=== PATIENT | female | born 1930 | race Caucasian/White ===

== ENCOUNTER 2019-02-06 13:17 | Inpatient (IN) | payer MEDICARE, OTHER ==
--- NOTE | 2019-02-06 13:58 | RADIOLOGY REPORT (SQ) ---
EXAM DESCRIPTION: KNEE LEFT 2 VIEWS COMPLETED DATE/TIME: 02/06/2019 1:40 pm REASON FOR STUDY: mp ? dislocation +tenderness COMPARISON: None. NUMBER OF VIEWS: Four views. TECHNIQUE: Lateral radiographic images acquired of the left knee. LIMITATIONS: None. FINDINGS: MINERALIZATION: Normal. BONES: Markedly distracted comminuted proximal-mid body patellar fracture. JOINT: No effusion. SOFT TISSUES: Soft tissue swelling. No radio-opaque foreign body. OTHER: No other significant finding. IMPRESSION: 1. Markedly distracted comminuted proximal -mid body patellar fracture. TECHNICAL DOCUMENTATION: JOB ID: [id number] [employer]- All Rights Reserved Reading location - IP/workstation name: [email or web address]
[2019-02-06] MEDS ORDERED: ONDANSETRON HCL INJ/PF 4 MG/2 ML SDV IV PRN (14:05)
[2019-02-06] MEDS ORDERED: OXYCODONE-ACETAMINOPHEN 5-325 MG TABLET PO PRN (14:05)
--- NOTE | 2019-02-06 14:12 | ER Document Report ---
Entered by HALEY FERNANDES SCRIBE 02/06/19 1400 Acting as scribe for:VALE VALDES MD ED Extremity Problem, Lower - General Chief Complaint: Knee Injury Stated Complaint: FALL/KNEE PAIN Time Seen by Provider: 02/06/19 13:42 Mode of Arrival: Ambulatory Information source: Patient Notes: Patient is an 88 year old female with HTN, osteoporosis presents to the emerge ncy department via EMS complaining of left knee pain secondary a mechanical trip and fall onset this morning. Patient states she was on her way to the [facility] when she tripped and fell on concrete, landing on her left knee. She denies any head trauma or being on blood thinners. Patient received 5mcg of IV Fentanyl and 4mg IV Zofran en route to the emergency department. Patient's PCP is Dr. Diaz. TRAVEL OUTSIDE OF THE [place] IN LAST 30 DAYS: No - Related Data Allergies/Adverse Reactions: codeine Allergy (Verified 02/06/19 13:43) Penicillins Allergy (Verified 02/06/19 13:43) streptomycin Allergy (Verified 02/06/19 13:45) ciprofloxacin [From Cipro] Adverse Reaction (Verified 02/06/19 14:24) Past Medical History - General Information source: Patient - Social History Smoking Status: Never Smoker Chew tobacco use (# tins/day): No Frequency of alcohol use: None Drug Abuse: None Family History: Reviewed & Not Pertinent Patient has suicidal ideation: No Patient has homicidal ideation: No - Past Medical History Cardiac Medical History: Reports: Hx Hypertension Review of Systems - Review of Systems Constitutional: No symptoms reported EENT: No symptoms reported Cardiovascular: No symptoms reported Respiratory: No symptoms reported Gastrointestinal: No symptoms reported Genitourinary: No symptoms reported Female Genitourinary: No symptoms reported Musculoskeletal: See HPI Skin: No symptoms reported Hematologic/Lymphatic: No symptoms reported Neurological/Psychological: No symptoms reported -: Yes All other systems reviewed and negative Physical Exam - Vital signs Vitals: Resp Pulse Ox 18 95 02/06/19 14:00 02/06/19 14:00 - Notes Notes: GENERAL: Alert, interacts well. No acute distress. HEAD: Normocephalic, atraumatic. EYES: Pupils equal, round, and reactive to light. Extraocular movements intact. ENT: Oral mucosa moist, tongue midline. NECK: Full range of motion. Supple. Trachea midline. LUNGS: Clear to auscultation bilaterally, no wheezes, rales, or rhonchi. No respiratory distress. HEART: Regular rate and rhythm. No murmurs, gallops, or rubs. ABDOMEN: Soft, non-tender. Non-distended. Bowel sounds present in all 4 quadrants. No guarding, rigidity, or rebound. EXTREMITIES: Moves all 4 extremities spontaneously. LLE is in flexion . Bony mass above and below the knee consistent with upper and lower half of patella, swelling. NEUROLOGICAL: Alert and oriented x3. Normal speech. PSYCH: Normal affect, normal mood. SKIN: Warm, dry, normal turgor. No rashes or lesions noted. Course - Re-evaluation Re-evalutation: 02/06/19 15:02 The knee immobilizer was placed on the left knee by myself with the assistance of the PCT. I slowly and gently extended the patient's knee until it was in a neutral position and then we applied the knee immobilizer. It does allow her to keep her knee in full extension and fits well. - Vital Signs Vital signs: Temp Pulse Resp BP Pulse Ox 17 152/69 H 95 02/06/19 14:02 02/06/19 14:02 02/06/19 14:02 - Diagnostic Test Radiology reviewed: Image reviewed, Reports reviewed - Transverse fracture of the patella with separation of the upper and lower halves - Consults Dr. Laurent Time consulted: 13:56 Consulted provider: will come to ER Discharge - Discharge Clinical Impression: Patella fracture Qualifiers: Encounter type: initial encounter Fracture type: closed Fracture morphology: transverse Fracture alignment: displaced Laterality: left Qualified Code(s): S82.032A - Displaced transverse fracture of left patella, initial encounter for closed fracture Condition: Stable Disposition: ADMITTED INPATIENT Admitting Provider: Dr. Laurent Unit Admitted: Surgical Floor Scribe Attestation: 02/06/19 14:10 I personally performed the services described in the documentation, reviewed and edited the documentation which was dictated to the scribe in my presence, and it accurately records my words and actions. I personally performed the services described in the documentation, reviewed and edited the documentation which was dictated to the scribe in my presence, and it accurately records my words and actions.
--- NOTE | 2019-02-06 14:26 | PDOC H&P ---
History of Present Illness Patient complains of: Left Knee Pain History of Present Illness: JOSE RAMON SAUNDERS is a 88 year old female who was out voting when she sustained a fall onto her left knee. Patient was unable to weight-bear. She was brought to emergency room where x-rays demonstrated fracture. Pain with attempted motion including straightening. She states straight leg sniffily worsens her pain. Denies numbness or tingling. Denies headache dizziness or loss of consciousness. Past Medical History Cardiac Medical History: Reports: Hypertension Social History Smoking Status: Never Smoker Family History Family History: Reviewed & Not Pertinent Parental Family History Reviewed: Yes Children Family History Reviewed: No Sibling(s) Family History Reviewed.: No Medication/Allergy Home Medications: Cephalexin [Cephalexin 500 MG Tablet] 500 mg PO TID 02/06/19 Losartan/Hydrochlorothiazide [Losartan-Hctz 100-25 mg Tab] 1 each PO DAILY 02/06/19 Metoprolol Succinate 100 mg PO BID 02/06/19 Raloxifene HCl [Evista 60 mg Tablet] 60 mg PO DAILY 02/06/19 Allergies/Adverse Reactions: codeine Allergy (Verified 02/06/19 13:43) Penicillins Allergy (Verified 02/06/19 13:43) streptomycin Allergy (Verified 02/06/19 13:45) ciprofloxacin [From Cipro] Adverse Reaction (Verified 02/06/19 14:24) Review of Systems Constitutional: ABSENT: chills, fever(s), headache(s), weight gain, weight loss Eyes: ABSENT: visual disturbances Ears: ABSENT: hearing changes Cardiovascular: ABSENT: chest pain, dyspnea on exertion, edema, orthropnea, palpitations Respiratory: ABSENT: cough, hemoptysis Gastrointestinal: ABSENT: abdominal pain, constipation, diarrhea, hematemesis, hematochezia, nausea, vomiting Genitourinary: ABSENT: dysuria, hematuria Musculoskeletal: PRESENT: as per HPI Integumentary: ABSENT: rash, wounds Neurological: ABSENT: abnormal gait, abnormal speech, confusion, dizziness, focal weakness, syncope Psychiatric: ABSENT: anxiety, depression, homidical ideation, suicidal ideation Endocrine: ABSENT: cold intolerance, heat intolerance, menstrual abnormalities, polydipsia, polyuria Hematologic/Lymphatic: ABSENT: easy bleeding, easy bruising, lymphadenopathy Physical Exam General appearance: PRESENT: no acute distress, well-developed, well-nourished Head exam: PRESENT: atraumatic, normocephalic Eye exam: PRESENT: conjunctiva pink, EOMI, PERRLA. ABSENT: scleral icterus Ear exam: PRESENT: normal external ear exam Mouth exam: PRESENT: moist, tongue midline Neck exam: PRESENT: full ROM. ABSENT: carotid bruit, JVD, lymphadenopathy, thyromegaly Respiratory exam: PRESENT: unlabored Cardiovascular exam: PRESENT: RRR. ABSENT: diastolic murmur, rubs, systolic murmur Pulses: PRESENT: normal dorsalis pedis pul, +2 pedal pulses bilateral Vascular exam: PRESENT: normal capillary refill GI/Abdominal exam: PRESENT: normal bowel sounds, soft. ABSENT: distended, guarding, mass, organolmegaly, rebound, tenderness Rectal exam: PRESENT: deferred Musculoskeletal exam: PRESENT: other - Left Knee: Palpable deformity of the anterior patella. Inability to straight leg raise. Mild effusion. No evidence of open wound. Intact PF/DF. No sensory deficits. DP Pulse 2+ Neurological exam: PRESENT: alert, awake, oriented to person, oriented to place, oriented to time, oriented to situation, CN II-XII grossly intact. ABSENT: m otor sensory deficit Psychiatric exam: PRESENT: appropriate affect, normal mood. ABSENT: homicidal ideation, suicidal ideation Skin exam: PRESENT: dry, intact, warm. ABSENT: cyanosis, rash Results Impressions: Knee X-Ray 02/06/19 00:00 IMPRESSION: 1. Markedly distracted comminuted proximal -mid body patellar fracture. Status: Image reviewed by ne - I have reviewed patient's radiographs which demonstrate transverse displaced patella fracture. No evidence of associated fracture. Assessment & Plan - Diagnosis (1) Fracture of patella Qualifiers: Encounter type: initial encounter Fracture type: closed Fracture morphology: transverse Fracture alignment: displaced Laterality: left Qualified Code(s): S82.032A - Displaced transverse fracture of left patella, initial encounter for closed fracture Is this a current diagnosis for this admission?: Yes Plan: Radiographs demonstrate displaced patella fracture given the amount of displacement I have recommended operative intervention however alternatives including nonoperative treatment have also been discussed. Risks and benefits of the surgical procedure have been explained to the patient risks including postoperative pain, stiffness, posttraumatic arthritis, nonunion, hardware failure or irritation necessitating removal. After discussing risks and benefits joint decision was made to proceed with operative treatment. Prior to operative intervention hospitalist will see the patient in consultation to determine if they are medically optimized for surgical treatment.
[2019-02-06 15:17] LABS: ABSOLUTE BASOPHILS # (AUTO) 0.1 10^3/uL (0.0-0.2); ABSOLUTE EOSINOPHILS # (AUTO) 0.1 10^3/uL (0.0-0.6); ABSOLUTE LYMPHOCYTES (AUTO) 1.2 10^3/uL (0.5-4.7); ABSOLUTE MONOCYTES (AUTO) 0.9 10^3/uL (0.1-1.4); ABSOLUTE NEUT (AUTO) 11.6 10^3/uL (1.7-8.2); BASOPHILS % (AUTO) 0.6 % (0-2); EOSINOPHILS % (AUTO) 0.9 % (0-6); HEMATOCRIT 37.9 % (36.0-47.0); HEMOGLOBIN 12.8 g/dL (12.0-15.5); LYMPHOCYTES % (AUTO) 8.4 % (13-45); MEAN CORPUSCULAR HEMOGLOBIN 30.8 pg (27.0-33.4); MEAN CORPUSCULAR HGB CONC 33.7 g/dL (32.0-36.0); MEAN CORPUSCULAR VOLUME 91 fl (80-97); MONOCYTES % (AUTO) 6.3 % (3-13); PLATELET COUNT 190 10^3/uL (150-450); RED BLOOD COUNT 4.15 10^6/uL (3.72-5.28); RED CELL DISTRIBUTION WIDTH 13.6 % (11.5-14.0); SEGMENTED NEUTROPHILS % (AUTO) 83.8 % (42-78); TOTAL CELLS COUNTED % (AUTO) 100 %; WHITE BLOOD COUNT 13.8 10^3/uL (4.0-10.5)
[2019-02-06 15:40] LABS: ALANINE AMINOTRANSFERASE 39 U/L (9-52); ALBUMIN 3.9 g/dL (3.5-5.0); ALKALINE PHOSPHATASE 45 U/L (38-126); ANION GAP 12 (5-19); ASPARTATE AMINO TRANSFERASE 27 U/L (14-36); BILIRUBIN,DIRECT 0.2 mg/dL (0.0-0.4); BILIRUBIN,TOTAL 0.4 mg/dL (0.2-1.3); BLOOD UREA NITROGEN 34 mg/dL (7-20); CALCIUM 10.1 mg/dL (8.4-10.2); CARBON DIOXIDE 30 mmol/L (22-30); CHLORIDE 97 mmol/L (98-107); CREATINE KINASE 44 U/L (30-135); GLUCOSE 113 mg/dL (75-110); POTASSIUM 3.3 mmol/L (3.6-5.0); SODIUM 138.8 mmol/L (137-145); TOTAL PROTEIN 6.8 g/dL (6.3-8.2)
[2019-02-06 15:47] LABS: CREATINE KINASE MB 1.01 ng/mL (<4.55)
[2019-02-06] MEDS: RINGERS SOLUTION,LACTATED 1,000 ML IV PRN (15:48)
[2019-02-06 15:55] LABS: TROPONIN I < 0.012 ng/mL
--- NOTE | 2019-02-06 15:56 | RADIOLOGY REPORT (SQ) ---
EXAM DESCRIPTION: CHEST SINGLE VIEW COMPLETED DATE/TIME: 02/06/2019 3:22 pm REASON FOR STUDY: pre-op COMPARISON: None. EXAM PARAMETERS: NUMBER OF VIEWS: One view. TECHNIQUE: Single frontal radiographic view of the chest acquired. RADIATION DOSE: NA LIMITATIONS: None. FINDINGS: LUNGS AND PLEURA: No opacities, masses or pneumothorax. No pleural effusion. MEDIASTINUM AND HILAR STRUCTURES: No masses. Contour normal. HEART AND VASCULAR STRUCTURES: Cardiomegaly. Normal vasculature. BONES: No acute findings. HARDWARE: None in the chest. OTHER: No other significant finding. IMPRESSION: 1. No acute pulmonary findings. 2. Cardiomegaly. No evidence for failure. TECHNICAL DOCUMENTATION: JOB ID: [id number] [employer]- All Rights Reserved Reading location - IP/workstation name: [email or web address]
[2019-02-06 16:02] LABS: APPEARANCE,URINE CLOUDY; BILIRUBIN,URINE NEGATIVE (NEGATIVE); GLUCOSE, URINE NEGATIVE (NEGATIVE); KETONES,URINE NEGATIVE (NEGATIVE); LEUKOCYTE ESTERASE,URINE NEGATIVE (NEGATIVE); NITRITE,URINE NEGATIVE (NEGATIVE); PROTEIN,URINE 100 mg/dL (NEGATIVE); URINE SPECIFIC GRAVITY 1.015; UROBILINOGEN,URINE NEGATIVE mg/dL (<2.0)
[2019-02-06 16:04] LABS: COLOR,URINE RED
[2019-02-06] MEDS ORDERED: METOPROLOL TARTRATE PF/INJ 5 MG/5 ML SDV IV PRN (16:23)
--- NOTE | 2019-02-06 16:44 | PDOC CONSULTATION ---
Consultation Consult Date: 02/06/19 Attending physician:: HUGO JEAN Consult reason:: HTN management History of Present Illness Admission Date/PCP: 02/06/19 14:34 EMILY MATIAS MD Patient complains of: FALL - L KNEE PAIN History of Present Illness: BILL SAUNDERS is a 88 year old female with a PMH HTN presented to the emergency department following a trip and fall. Patient reports she landed on her left knee. X-rays reveal markedly distracted comminuted proximal -mid body patellar fracture. Patient is admitted to Ortho surgery. Hospitalist is consulted for HTN management and cardiac clearance for surgery. The patient reports a medical history of HTN. No history of cardiac catheterization, stress test or echocardiogram. Her HTN is managed by her PCP, Dr. Matias. On exam, the patient has a systolic murmur. She denies ever being told she has a murmur. Discussed the patient's history and physical exam with Dr. Francis, will plan for preop echocardiogram and EKG. Past Medical History Cardiac Medical History: Reports: Hypertension Pulmonary Medical History: Reports: None EENT Medical History: Reports: None Neurological Medical History: Reports: None Endocrine Medical History: Reports: None Renal/ Medical History: Reports: None Malignancy Medical History: Reports: None GI Medical History: Reports: None Musculoskeltal Medical History: Reports: None Skin Medical History: Reports: None Psychiatric Medical History: Reports: None Traumatic Medical History: Reports: None Hematology: Reports: None Infectious Medical History: Reports: None Past Surgical History Past Surgical History: Reports: Appendectomy, 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 Social History Information Source: Patient Lives with: Alone Smoking Status: Never Smoker Frequency of Alcohol Use: None Hx Recreational Drug Use: No Drugs: None Hx Prescription Drug Abuse: No - Advance Directive Resuscitation Status: Do Not Resuscitate Family History Family History: CAD Parental Family History Reviewed: Yes Children Family History Reviewed: Yes Sibling(s) Family History Reviewed.: Unknown Medication/Allergy Home Medications: Cephalexin [Cephalexin 500 MG Tablet] 500 mg PO TID 02/06/19 Losartan/Hydrochlorothiazide [Losartan-Hctz 100-25 mg Tab] 1 each PO DAILY 02/06/19 Metoprolol Succinate 100 mg PO BID 02/06/19 Raloxifene HCl [Evista 60 mg Tablet] 60 mg PO DAILY 02/06/19 Allergies/Adverse Reactions: codeine Allergy (Verified 02/06/19 13:43) Penicillins Allergy (Verified 02/06/19 13:43) streptomycin Allergy (Verified 02/06/19 13:45) ciprofloxacin [From Cipro] Adverse Reaction (Verified 02/06/19 14:24) Review of Systems Constitutional: ABSENT: headache(s) Eyes: ABSENT: visual disturbances Ears: ABSENT: hearing changes Nose, Mouth, and Throat: ABSENT: headache(s) Cardiovascular: ABSENT: chest pain Gastrointestinal: ABSENT: abdominal pain Genitourinary: PRESENT: dysuria - currently taking cephalexin for UTI Musculoskeletal: PRESENT: deformity - L KNEE, joint swelling Neurological: ABSENT: vertigo Psychiatric: ABSENT: anxiety, depression Endocrine: ABSENT: cold intolerance, heat intolerance Hematologic/Lymphatic: ABSENT: easy bleeding, easy bruising Physical Exam Vital Signs: Temp Pulse Resp BP Pulse Ox 97.5 F 57 L 14 150/77 H 98 02/06/19 13:23 02/06/19 13:23 02/06/19 16:01 02/06/19 16:01 02/06/19 16:01 General appearance: PRESENT: thin Head exam: PRESENT: atraumatic Eye exam: PRESENT: conjunctiva pink, PERRLA Mouth exam: PRESENT: moist, tongue midline Neck exam: PRESENT: full ROM. ABSENT: JVD Respiratory exam: PRESENT: clear to auscultation gabriella, symmetrical, unlabored Cardiovascular exam: PRESENT: RRR, systolic murmur Pulses: PRESENT: normal radial pulses, normal dorsalis pedis pul Vascular exam: PRESENT: normal capillary refill GI/Abdominal exam: PRESENT: soft. ABSENT: distended, tenderness Rectal exam: PRESENT: deferred Extremities exam: ABSENT: full ROM, pedal edema Musculoskeletal exam: PRESENT: deformity - L KNEE. ABSENT: ambulatory, full ROM Neurological exam: PRESENT: alert, awake, oriented to person, oriented to place, oriented to time, oriented to situation Psychiatric exam: PRESENT: appropriate affect Skin exam: PRESENT: dry, intact, normal color Results Laboratory Results: 02/06/19 15:03 02/06/19 15:03 02/06/19 02/06/19 02/06/19 15:03 15:03 15:26 WBC 13.8 H RBC 4.15 Hgb 12.8 Hct 37.9 MCV 91 MCH 30.8 MCHC 33.7 RDW 13.6 Plt Count 190 Seg Neutrophils % 83.8 H Lymphocytes % 8.4 L Monocytes % 6.3 Eosinophils % 0.9 Basophils % 0.6 Absolute Neutrophils 11.6 H Absolute Lymphocytes 1.2 Absolute Monocytes 0.9 Absolute Eosinophils 0.1 Absolute Basophils 0.1 Sodium 138.8 Potassium 3.3 L Chloride 97 L Carbon Dioxide 30 Anion Gap 12 BUN 34 H Creatinine 1.09 Est GFR ( Amer) 57 L Est GFR (Non-Af Amer) 47 L Glucose 113 H Calcium 10.1 Total Bilirubin 0.4 AST 27 ALT 39 Alkaline Phosphatase 45 Total Protein 6.8 Albumin 3.9 Urine Color RED Urine Appearance CLOUDY Urine pH 6.0 Ur Specific [place] 1.015 Urine Protein 100 H Urine Glucose (UA) NEGATIVE Urine Ketones NEGATIVE Urine Blood LARGE H Urine Nitrite NEGATIVE Ur Leukocyte Esterase NEGATIVE Urine WBC (Auto) 51 Urine RBC (Auto) >182 02/06/19 02/06/19 15:03 15:03 Creatine Kinase 44 CK-MB (CK-2) 1.01 Troponin I < 0.012 Impressions: Knee X-Ray 02/06/19 00:00 IMPRESSION: 1. Markedly distracted comminuted proximal -mid body patellar fracture. Chest X-Ray 02/06/19 13:57 IMPRESSION: 1. No acute pulmonary findings. 2. Cardiomegaly. No evidence for failure. Status: Imported from PACS Assessment and Plan - Diagnosis (1) Fracture of patella Qualifiers: Encounter type: initial encounter Fracture type: closed Fracture morphology: transverse Fracture alignment: displaced Laterality: left Qualified Code(s): S82.032A - Displaced transverse fracture of left patella, initial encounter for closed fracture Is this a current diagnosis for this admission?: Yes Plan: Management per Ortho (2) Hypertension Qualifiers: Hypertension type: essential hypertension Qualified Code(s): I10 - Essential (primary) hypertension Is this a current diagnosis for this admission?: Yes Plan: PMH HTN Blood pressure relatively well controlled (SBP 150) PRN IV hydralazine and IV Lopressor for SBP > 170 We will resume home medications when reconciliation is complete (3) Systolic murmur Is this a current diagnosis for this admission?: Yes Plan: Systolic murmur heard during assessment Patient denies ever being told she has a murmur Patient denies ever undergoing a cardiac work-up Discussed assessment findings with Dr. Francis Plan for preoperative echocardiogram and EKG - Time Time Spent with patient: 15-24 minutes Medications reviewed and adjusted accordingly: Yes Anticipated discharge: Home, Acute Rehab Within: Other - When medically stable - Inpatient Certification Based on my medical assessment, after consideration of the patient's comorbidities, presenting symptoms, or acuity I expect that the services needed warrant INPATIENT care.: Yes I certify that my determination is in accordance with my understanding of Medicare's requirements for reasonable and necessary INPATIENT services [42 CFR 412.3e].: Yes Medical Necessity: Need for Surgery
[2019-02-06] MEDS: HYDRALAZINE HCL INJ/PF 20 MG/1 ML SDV IV PRN (18:29)
[2019-02-06] MEDS: MORPHINE SULFATE 10 MG/ML INJ IV PRN (21:42)
[2019-02-07] MEDS: RINGERS SOLUTION,LACTATED 1,000 ML IV PRN ×2 (06:06→21:51)
[2019-02-07 07:48] LABS: ABSOLUTE LYMPHOCYTES (AUTO) 1.4 10^3/uL (0.5-4.7); ABSOLUTE MONOCYTES (AUTO) 1.2 10^3/uL (0.1-1.4); ABSOLUTE NEUT (AUTO) 8.6 10^3/uL (1.7-8.2); BASOPHILS % (AUTO) 0.3 % (0-2); EOSINOPHILS % (AUTO) 0.4 % (0-6); HEMATOCRIT 33.1 % (36.0-47.0); HEMOGLOBIN 11.3 g/dL (12.0-15.5); MEAN CORPUSCULAR VOLUME 91 fl (80-97); MONOCYTES % (AUTO) 10.9 % (3-13); PLATELET COUNT 153 10^3/uL (150-450); RED BLOOD COUNT 3.64 10^6/uL (3.72-5.28); RED CELL DISTRIBUTION WIDTH 13.9 % (11.5-14.0); SEGMENTED NEUTROPHILS % (AUTO) 76.4 % (42-78); TOTAL CELLS COUNTED % (AUTO) 100 %; WHITE BLOOD COUNT 11.3 10^3/uL (4.0-10.5)
[2019-02-07 07:50] LABS: ANION GAP 10 (5-19); BLOOD UREA NITROGEN 31 mg/dL (7-20); CALCIUM 9.4 mg/dL (8.4-10.2); CARBON DIOXIDE 28 mmol/L (22-30); CHLORIDE 99 mmol/L (98-107); GLUCOSE 104 mg/dL (75-110); POTASSIUM 3.4 mmol/L (3.6-5.0); SODIUM 136.5 mmol/L (137-145)
[2019-02-07] MEDS ORDERED: CLINDAMYCIN 600 MG/D5W RTU 600 MG/50 ML RTUPB IV PRN (08:15)
[2019-02-07] MEDS ORDERED: CLINDAMYCIN 600 MG/D5W RTU 600 MG/50 ML RTUPB IV ONE (08:42)
[2019-02-07] MEDS ORDERED: FENTANYL CITRATE INJ/PF 100 MCG/2 ML AMPUL ONE (08:51)
[2019-02-07] MEDS ORDERED: PROPOFOL INJ 200 MG/20 ML VIAL IV ONE (08:52)
[2019-02-07] MEDS ORDERED: ONDANSETRON HCL INJ/PF 4 MG/2 ML SDV ONE (08:52)
[2019-02-07] MEDS ORDERED: MIDAZOLAM 2 MG/2 ML INJ ONE (08:52)
[2019-02-07] MEDS ORDERED: MORPHINE SULFATE 10 MG/ML INJ IV PRN ×2 (09:37→10:45)
[2019-02-07] MEDS ORDERED: DIPHENHYDRAMINE HCL 50 MG/ML VIAL IV PRN (09:37)
[2019-02-07] MEDS ORDERED: FENTANYL CITRATE INJ/PF 100 MCG/2 ML AMPUL IV PRN ×3 (09:37)
[2019-02-07] MEDS ORDERED: OXYCODONE-ACETAMINOPHEN 5-325 MG TABLET PO PRN ×2 (09:37)
[2019-02-07] MEDS ORDERED: PROMETHAZINE HCL INJ 25 MG/1 ML VIAL IV PRN ×2 (09:37)
[2019-02-07] MEDS ORDERED: ONDANSETRON HCL INJ/PF 4 MG/2 ML SDV IV PRN (09:37)
[2019-02-07] MEDS ORDERED: MEPERIDINE HCL/PF INJ 25 MG/1 ML DISP.SYRIN IV PRN (09:37)
[2019-02-07] MEDS ORDERED: EPHEDRINE SULFATE INJ 50 MG/1 ML AMPULE ONE (09:41)
--- NOTE | 2019-02-07 09:51 | Operative Report ---
Operative Report DATE OF SURGERY: 02/07/19 PREOPERATIVE DIAGNOSIS: Left patella fracture OPERATION: Open reduction internal fixation left patella fracture SURGEON: SHRUTHI KOENIG ANESTHESIA: Spinal ESTIMATED BLOOD LOSS: Minimal PROCEDURE: With the patient supine on the operative table the left lower extremities prepped and draped in sterile fashion. Limb is elevated for exsanguination tourniquet inflated 280 torr. A longitudinal incision was made over the midline of the left patella and sharp dissection was carried incision down to the patellar periosteum. The hematoma is evacuated. The underlying his patella is reduced under direct visualization with a large tenaculum. Subsequently to 0.062 K wires are advanced from distal to proximal across the fracture site. Fluoroscopy was used to assess hardware position as well as fracture reduction both of which are acceptable. Next a #5 FiberWire is used to fashion a [id number] around the existing K wires and across the fracture site anteriorly. This is secured with square knot. The FiberWire was then used to repair both the medial and lateral retinacular tears. At this point the knee is put through range of motion and the fixation was felt to be stable. Fluoroscopy demonstrates an anatomic reduction and adequate hardware placement. The tourniquet is deflated. The wound was irrigated bulb lavage. Hemostasis obtained with electrocautery. The wound was then closed in layers interrupted Vicryl followed by vibha. A sterile compressive dressing and knee immobilizer applied and the patient's return to the PACU in satisfactory condition.
[2019-02-07] MEDS ORDERED: RINGERS SOLUTION,LACTATED 1,000 ML IV PRN (10:43)
--- NOTE | 2019-02-07 11:36 | RADIOLOGY REPORT (SQ) ---
EXAM DESCRIPTION: NO CHG FLUORO; KNEE LEFT 2 VIEWS COMPLETED DATE/TIME: 02/07/2019 11:13 am REASON FOR STUDY: ORIF LEFT KNEE ASST WITH FLUORO IN OR; ORIF LEFT KNEE/PATELLA ASST WITH FLUORO IN OR COMPARISON: None. FLUOROSCOPY TIME: 0.1 minutes 2 images saved to PACS. TECHNIQUE: Intra-operative images acquired during surgical procedure to evaluate progress. NUMBER OF IMAGES: 0.2 LIMITATIONS: None. FINDINGS: Images obtained of the left knee reveal open reduction internal fixation of patellar fract ure. Please correlate with operative note. IMPRESSION: IMAGE(S) OBTAINED DURING PROCEDURE. COMMENT: Quality ID [id number]: Final reports for procedures using fluoroscopy that document radiation exp osure indices, or exposure time and number of fluorographic images (if radiation exposure indices are not available) Please consult full operative report of the attending physician for description of the procedure. TECHNICAL DOCUMENTATION: JOB ID: [id number] [employer]- All Rights Reserved Reading location - IP/workstation name: [email or web address]
--- NOTE | 2019-02-07 11:36 | RADIOLOGY REPORT (SQ) ---
EXAM DESCRIPTION: NO CHG FLUORO; KNEE LEFT 2 VIEWS COMPLETED DATE/TIME: 02/07/2019 11:13 am REASON FOR STUDY: ORIF LEFT KNEE ASST WITH FLUORO IN OR; ORIF LEFT KNEE/PATELLA ASST WITH FLUORO IN OR COMPARISON: None. FLUOROSCOPY TIME: 0.1 minutes 2 images saved to PACS. TECHNIQUE: Intra-operative images acquired during surgical procedure to evaluate progress. NUMBER OF IMAGES: 0.2 LIMITATIONS: None. FINDINGS: Images obtained of the left knee reveal open reduction internal fixation of patellar fract ure. Please correlate with operative note. IMPRESSION: IMAGE(S) OBTAINED DURING PROCEDURE. COMMENT: Quality ID [id number]: Final reports for procedures using fluoroscopy that document radiation exp osure indices, or exposure time and number of fluorographic images (if radiation exposure indices are not available) Please consult full operative report of the attending physician for description of the procedure. TECHNICAL DOCUMENTATION: JOB ID: [id number] [employer]- All Rights Reserved Reading location - IP/workstation name: [email or web address]
[2019-02-07] MEDS: MORPHINE SULFATE 10 MG/ML INJ IV PRN (12:11)
[2019-02-07] MEDS ORDERED: POTASSIUM CHLORIDE 10 MEQ CAPSULE.ER PO ONE (12:55)
[2019-02-07] MEDS ORDERED: PHENYLEPHRINE HCL INJ/PF 10 MG/1 ML SDV ONE (13:49)
[2019-02-07] MEDS ORDERED: CLINDAMYCIN RTU 600 MG/D5W 50 ML IV SCH (14:00)
[2019-02-07] MEDS: CLINDAMYCIN 600 MG/D5W RTU 600 MG/50 ML RTUPB IV SCH ×2 (14:46→21:49)
--- NOTE | 2019-02-07 18:26 | XCELERA REPORT ---
[address] [address] Transthoracic Echocardiogram Report Name: BILL SAUNDERS Age: 88 yrs Gender: Female : 1930 Patient Status: Inpatient Patient Location: [address] [place] [address] Study Date: 02/06/2019 06:31 PM Height: 67 in Weight: 120 lb BSA: 1.6 m2 Procedure: A two-dimensional transthoracic echocardiogram with color flow and Doppler was performed. Images were not obtained from all of the standard acoustic windows due to the limited scope of the study. Reason For Study: pre-op/murmur History: MURMUR / PRE=OP. Ordering Physician: HAIM BOLTON Performed By: Minerva Mccurdy Interpretation Summary The left ventricle is normal in size. There is mild concentric left ventricular hypertrophy. Doppler measurements suggest impaired left ventricular relaxation, which is associated with grade I/IV or mild diastolic dysfunction No True apical 2 chamber views obtained.Hence cannot comment on the apical anterior , the basal anterior, the basal inferior and apical inferior cabrera.The mid anterior , the mid inferior and the rest of the LV cabrera contract normally. .Normal LVEF is normal and is greater than 65% in the limited views. There is no thrombus. There is no ventricular septal defect visualized. The right ventricle is mildly dilated. The right ventricular systolic function is normal. The right atrium is mild to moderately dilated. The interatrial septum is intact with no evidence for an atrial septal defect. There is no Doppler evidence for an interatrial shunt There is no evidence of mitral valve prolapse. There is no vegetation seen on the mitral valve. There is no mitral valve stenosis. There is a mild amount of mitral regurgitation There is no aortic valvular vegetation. There is mild aortic stenosis There is a peak gradient of 19 mm of Hg. No hemodynamically significant valvular aortic stenosis. There is no LVOT obstruction. There is a mild amount of aortic regurgitation There is no tricuspid stenosis. There is a moderate to severe amount of tricuspid regurgitation There is moderate pulmonary hypertension by echo VSp is 52 to 57 mm of Hg , with RA mean of 5 to 10. The pulmonic valve is not well visualized. There is no pericardial effusion. MMode/2D Measurements & Calculations RVDd: 2.5 cm LVIDd: 4.2 cm FS: 37.0 % Ao root diam: 3.3 cm IVSd: 1.4 cm LVIDs: 2.6 cm EDV(Teich): 77.9 ml Ao root area: 8.4 cm2 LVPWd: 0.81 cm ESV(Teich): 25.5 ml LA dimension: 2.6 cm EF(Teich): 67.3 % LVOT diam: 1.9 cm LVOT area: 2.7 cm2 Doppler Measurements & Calculations MV E max simon: MV P1/2t max simon: Ao V2 max: AI max simon: 69.6 cm/sec 84.2 cm/sec 214.8 cm/sec 357.7 cm/sec MV A max simon: MV P1/2t: 58.7 msec Ao max PG: AI max P.5 cm/sec MVA(P1/2t): 3.7 cm2 18.4 mmHg 51.2 mmHg MV E/A: 0.89 MV dec slope: SONNY(V,D): 1.9 cm2 AI dec slope: 145.8 cm/sec2 419.9 cm/sec2 AI P1/2t: MV dec time: 718.8 msec 0.26 sec LV V1 max PG: PA V2 max: PI end-d simon: TR max simon: 8.7 mmHg 104.5 cm/sec 88.2 cm/sec 341.5 cm/sec LV V1 max: PA max P.4 mmHg TR max P.5 cm/sec 46.6 mmHg AV P1/2t-pr_phl: MV P1/2t-pr_phl: 720.2 msec 58.7 msec Left Ventricle The left ventricle is normal in size. There is mild concentric left ventricular hypertrophy. Doppler measurements suggest impaired left ventricular relaxation, which is associated with grade I/IV or mild diastolic dysfunction. No True apical 2 chamber views obtained.Hence cannot comment on the apical anterior , the basal anterior, the basal inferior and apical inferior cabrera.The mid anterior , the mid inferior and the rest of the LV cabrera contract normally. .Normal LVEF is normal and is greater than 65% in the limited views. There is no thrombus. There is no ventricular septal defect visualized. Right Ventricle The right ventricle is mildly dilated. The right ventricular systolic function is normal. Atria The right atrium is mild to moderately dilated. The left atrium is mildly dilated. The interatrial septum is intact with no evidence for an atrial septal defect. There is no Doppler evidence for an interatrial shunt. Mitral Valve There is mild mitral annular calcification. There is no evidence of mitral valve prolapse. There is no vegetation seen on the mitral valve. There is no mitral valve stenosis. There is a mild amount of mitral regurgitation. Aortic Valve There is no aortic valvular vegetation. There is mild aortic stenosis. There is a peak gradient of 19 mm of Hg. No hemodynamically significant valvular aortic stenosis. There is no LVOT obstruction. There is a mild amount of aortic regurgitation. Tricuspid Valve There is no tricuspid stenosis. There is a moderate to severe amount of tricuspid regurgitation. There is moderate pulmonary hypertension by echo. VSp is 52 to 57 mm of Hg , with RA mean of 5 to 10. Pulmonic Valve The pulmonic valve is not well visualized. Great Vessels The aortic root is not well visualized but is probably normal size. The inferior vena cava appeared normal and decreased > 50% with respiration (RAP 5-10 mmHg). Effusions There is no pericardial effusion. : HAIM BOLTON > Annamaria Francis
--- NOTE | 2019-02-07 23:07 | EKG REPORT ---
SEVERITY:- ABNORMAL ECG - SINUS RHYTHM FIRST DEGREE AV BLOCK : Confirmed by: Enriqueta Perez 07-Feb-2019 23:06:02
--- NOTE | 2019-02-08 06:25 | PDOC PROGRESS REPORT ---
Subjective Progress Note for:: 02/08/19 Reason For Visit: LEFT PATELLA FRACTURE 88-year-old white female now postop day 1 status post open reduction internal fixation of a left patella fracture. Patient with complaints of pain overnight but otherwise seems to be doing well. Physical Exam Vital Signs: Temp Pulse Resp BP Pulse Ox 36.6 C 88 16 162/67 H 98 02/07/19 19:33 02/07/19 19:33 02/07/19 19:33 02/07/19 19:33 02/07/19 19:33 Intake & Output 02/06/19 02/07/19 02/08/19 06:59 06:59 06:59 Intake Total 930 2590 Output Total 925 160 Balance 5 2430 Weight 61.7 kg 53.8 kg Physical Exam: Thin elderly white female lying in a hospital bed in no acute distress. General appearance: PRESENT: no acute distress, mild distress, thin Head exam: PRESENT: normocephalic Respiratory exam: PRESENT: unlabored Cardiovascular exam: PRESENT: RRR Pulses: PRESENT: +1 pedal pulses bilateral Vascular exam: PRESENT: normal capillary refill GI/Abdominal exam: PRESENT: soft Rectal exam: PRESENT: deferred Musculoskeletal exam: PRESENT: other - Left knee immobilizer in place. Dressing is not taking down. Brisk capillary refill of digits. Neurological exam: PRESENT: alert, awake, oriented to person, oriented to place, oriented to time, oriented to situation. ABSENT: motor sensory deficit Psychiatric exam: PRESENT: appropriate affect, normal mood. ABSENT: homicidal ideation, suicidal ideation Skin exam: PRESENT: dry, intact, warm. ABSENT: cyanosis, rash Results Laboratory Results: 02/07/19 06:54 02/07/19 06:54 02/07/19 02/07/19 06:54 06:54 WBC 11.3 H RBC 3.64 L Hgb 11.3 L Hct 33.1 L MCV 91 MCH 31.0 MCHC 34.0 RDW 13.9 Plt Count 153 Seg Neutrophils % 76.4 Lymphocytes % 12.0 L Monocytes % 10.9 Eosinophils % 0.4 Basophils % 0.3 Absolute Neutrophils 8.6 H Absolute Lymphocytes 1.4 Absolute Monocytes 1.2 Absolute Eosinophils 0.0 Absolute Basophils 0.0 Sodium 136.5 L Potassium 3.4 L Chloride 99 Carbon Dioxide 28 Anion Gap 10 BUN 31 H Creatinine 0.94 Est GFR ( Amer) > 60 Est GFR (Non-Af Amer) 56 L Glucose 104 Calcium 9.4 02/06/19 02/06/19 15:03 15:03 Creatine Kinase 44 CK-MB (CK-2) 1.01 Troponin I < 0.012 Impressions: Chest X-Ray 02/06/19 13:57 IMPRESSION: 1. No acute pulmonary findings. 2. Cardiomegaly. No evidence for failure. Fluoroscopy 02/07/19 00:00 IMPRESSION: IMAGE(S) OBTAINED DURING PROCEDURE. Knee X-Ray 02/07/19 00:00 IMPRESSION: IMAGE(S) OBTAINED DURING PROCEDURE. Status: Imported from PACS Assessment & Plan - Diagnosis (1) Patella fracture Qualifiers: Encounter type: subsequent encounter Fracture type: closed Fracture morphology: transverse Fracture alignment: displaced Laterality: left Is this a current diagnosis for this admission?: Yes Plan: Mobilized with physical therapy and weightbearing as tolerated basis in the knee immobilizer. No range of motion as of yet. - Time Time Spent with patient: 15-24 minutes Anticipated discharge: SNF Within: when bed available
[2019-02-08 06:47] LABS: ABSOLUTE LYMPHOCYTES (AUTO) 0.9 10^3/uL (0.5-4.7); ABSOLUTE MONOCYTES (AUTO) 1.3 10^3/uL (0.1-1.4); BASOPHILS % (AUTO) 0.2 % (0-2); EOSINOPHILS % (AUTO) 0.1 % (0-6); HEMATOCRIT 30.3 % (36.0-47.0); HEMOGLOBIN 10.5 g/dL (12.0-15.5); MEAN CORPUSCULAR HEMOGLOBIN 31.3 pg (27.0-33.4); MEAN CORPUSCULAR HGB CONC 34.6 g/dL (32.0-36.0); MEAN CORPUSCULAR VOLUME 91 fl (80-97); MONOCYTES % (AUTO) 12.6 % (3-13); PLATELET COUNT 130 10^3/uL (150-450); RED BLOOD COUNT 3.34 10^6/uL (3.72-5.28); TOTAL CELLS COUNTED % (AUTO) 100 %; WHITE BLOOD COUNT 10.2 10^3/uL (4.0-10.5)
[2019-02-08 07:39] LABS: ANION GAP 9 (5-19); BLOOD UREA NITROGEN 22 mg/dL (7-20); CALCIUM 8.7 mg/dL (8.4-10.2); CARBON DIOXIDE 26 mmol/L (22-30); CHLORIDE 100 mmol/L (98-107); GLUCOSE 113 mg/dL (75-110); POTASSIUM 3.7 mmol/L (3.6-5.0); SODIUM 135.4 mmol/L (137-145)
[2019-02-08] MEDS: HYDRALAZINE HCL INJ/PF 20 MG/1 ML SDV IV PRN (09:12)
[2019-02-08] MEDS: ASPIRIN 81 MG TABLET, ENT COATED PO SCH (09:12)
[2019-02-08] MEDS: MORPHINE SULFATE 10 MG/ML INJ IV PRN (11:11)
[2019-02-08] MEDS: BENZOCAINE/MENTHOL SORE THROAT LOZENGE BUCCAL PRN (11:23)
[2019-02-08 11:52] LABS: APPEARANCE,URINE CLEAR; BILIRUBIN,URINE NEGATIVE (NEGATIVE); COLOR,URINE YELLOW; GLUCOSE, URINE >=500 mg/dL (NEGATIVE); KETONES,URINE NEGATIVE (NEGATIVE); LEUKOCYTE ESTERASE,URINE NEGATIVE (NEGATIVE); NITRITE,URINE NEGATIVE (NEGATIVE); PROTEIN,URINE NEGATIVE (NEGATIVE); URINE SPECIFIC GRAVITY 1.011; UROBILINOGEN,URINE NEGATIVE mg/dL (<2.0)
[2019-02-08] MEDS ORDERED: BISACODYL 10 MG SUPP.RECT PR PRN (16:08)
[2019-02-08] MEDS ORDERED: MAGNESIUM CITRATE 296 ML BOTTLE PO PRN (16:09)
[2019-02-08] MEDS: HYDROCHLOROTHIAZIDE 25 MG TABLET PO SCH (16:12)
[2019-02-08] MEDS: LOSARTAN POTASSIUM 50 MG TABLET PO SCH (16:12)
[2019-02-08] MEDS ORDERED: BISACODYL 5 MG TABEC PO ONE (16:30)
[2019-02-08] MEDS ORDERED: (PENDING PHARMACY ID) (Losartan/Hydrochlorothiazide [Losartan-Hctz 100-25 Mg Tab] 1 EACH) PO SCH (17:00)
[2019-02-08] MEDS: DOCUSATE SODIUM 100 MG CAPSULE PO SCH (17:18)
[2019-02-08] MEDS ORDERED: (PENDING PHARMACY ID) (Metoprolol Succinate [Metoprolol Succinate] 100 MG) PO SCH (18:00)
[2019-02-08] MEDS: METOPROLOL SUCCINATE 50 MG TAB.SR.24H PO SCH (21:06)
[2019-02-08] MEDS: HYDROCODONE/ACETAMINOPHEN 5-325 MG TABLET PO PRN (23:07)
--- NOTE | 2019-02-09 07:53 | PDOC PROGRESS REPORT ---
Subjective Progress Note for:: 02/09/19 Subjective:: Patient lying in bed comfortably. Pain controlled. No issues overnight. Denies chest pain shortness of breath. Reason For Visit: LEFT PATELLA FRACTURE Physical Exam Vital Signs: Temp Pulse Resp BP Pulse Ox 98.7 F 87 15 136/64 H 100 02/08/19 23:00 02/08/19 23:00 02/08/19 23:00 02/08/19 23:00 02/08/19 23:00 Intake & Output 02/08/19 02/09/19 02/10/19 06:59 06:59 06:59 Intake Total 2590 2277 Output Total 160 1300 Balance 2430 977 Weight 53.8 kg 56.2 kg Musculoskeletal exam: PRESENT: other - Left lower extremity: Dressing clean/dry/intact no erythema or drainage. Moderate thigh swelling without c hange, intact plantarflexion/dorsiflexion. No sensory deficits. No calf tenderness. Results Laboratory Results: 02/08/19 05:52 02/08/19 05:52 02/08/19 02/08/19 05:52 11:20 Sodium 135.4 L Potassium 3.7 Chloride 100 Carbon Dioxide 26 Anion Gap 9 BUN 22 H Creatinine 0.79 Est GFR ( Amer) > 60 Est GFR (Non-Af Amer) > 60 Glucose 113 H Calcium 8.7 Urine Color YELLOW Urine Appearance CLEAR Urine pH 5.0 Ur Specific [place] 1.011 Urine Protein NEGATIVE Urine Glucose (UA) >=500 H Urine Ketones NEGATIVE Urine Blood LARGE H Urine Nitrite NEGATIVE Ur Leukocyte Esterase NEGATIVE Urine WBC (Auto) 4 Urine RBC (Auto) >182 02/06/19 02/06/19 15:03 15:03 Creatine Kinase 44 CK-MB (CK-2) 1.01 Troponin I < 0.012 Impressions: Chest X-Ray 02/06/19 13:57 IMPRESSION: 1. No acute pulmonary findings. 2. Cardiomegaly. No evidence for failure. Fluoroscopy 02/07/19 00:00 IMPRESSION: IMAGE(S) OBTAINED DURING PROCEDURE. Knee X-Ray 02/07/19 00:00 IMPRESSION: IMAGE(S) OBTAINED DURING PROCEDURE. Assessment & Plan - Diagnosis (1) Fracture of patella Qualifiers: Encounter type: initial encounter Fracture type: closed Fracture morphology: transverse Fracture alignment: displaced Laterality: left Qualified Code(s): S82.032A - Displaced transverse fracture of left patella, initial encounter for closed fracture Is this a current diagnosis for this admission?: Yes Plan: Status post ORIF left patella 1. Aspirin for DVT prophylaxis 2. Physical therapy weightbearing as started with knee immobilizer 3. Discharge planning to [facility] facility when bed available
[2019-02-09] MEDS: DOCUSATE SODIUM 100 MG CAPSULE PO SCH ×2 (09:45→17:18)
[2019-02-09] MEDS: ASPIRIN 81 MG TABLET, ENT COATED PO SCH (09:45)
[2019-02-09] MEDS: METOPROLOL SUCCINATE 50 MG TAB.SR.24H PO SCH ×2 (09:45→21:25)
[2019-02-09] MEDS: LOSARTAN POTASSIUM 50 MG TABLET PO SCH (09:46)
[2019-02-09] MEDS: HYDROCHLOROTHIAZIDE 25 MG TABLET PO SCH (09:46)
[2019-02-09] MEDS: CALCIUM CARBONATE 250 MG/VITAMIN D3 125 UNIT TABLET PO SCH (09:53)
[2019-02-09] MEDS: BENZOCAINE/MENTHOL SORE THROAT LOZENGE BUCCAL PRN (09:54)
[2019-02-09] MEDS ORDERED: MGOX PO SCH (10:00)
[2019-02-09] MEDS ORDERED: B6 PO SCH (10:00)
[2019-02-09] MEDS ORDERED: [UNRECOGNIZED DRUG - OTHER] PO SCH (10:00)
[2019-02-09] MEDS ORDERED: VIT D3 PO SCH (10:00)
[2019-02-09] MEDS ORDERED: CA CITRATE PO SCH (10:00)
[2019-02-09 10:04] LABS: ABSOLUTE EOSINOPHILS # (AUTO) 0.1 10^3/uL (0.0-0.6); ABSOLUTE LYMPHOCYTES (AUTO) 0.7 10^3/uL (0.5-4.7); ABSOLUTE MONOCYTES (AUTO) 0.9 10^3/uL (0.1-1.4); ABSOLUTE NEUT (AUTO) 6.9 10^3/uL (1.7-8.2); ANION GAP 7 (5-19); BASOPHILS % (AUTO) 0.5 % (0-2); BLOOD UREA NITROGEN 20 mg/dL (7-20); CALCIUM 8.4 mg/dL (8.4-10.2); CARBON DIOXIDE 28 mmol/L (22-30); CHLORIDE 96 mmol/L (98-107); EOSINOPHILS % (AUTO) 1.3 % (0-6); GLUCOSE 120 mg/dL (75-110); HEMATOCRIT 30.2 % (36.0-47.0); HEMOGLOBIN 10.1 g/dL (12.0-15.5); LYMPHOCYTES % (AUTO) 8.3 % (13-45); MEAN CORPUSCULAR HEMOGLOBIN 30.5 pg (27.0-33.4); MEAN CORPUSCULAR HGB CONC 33.5 g/dL (32.0-36.0); MEAN CORPUSCULAR VOLUME 91 fl (80-97); MONOCYTES % (AUTO) 10.5 % (3-13); PLATELET COUNT 139 10^3/uL (150-450); POTASSIUM 4.3 mmol/L (3.6-5.0); RED BLOOD COUNT 3.32 10^6/uL (3.72-5.28); RED CELL DISTRIBUTION WIDTH 13.5 % (11.5-14.0); SEGMENTED NEUTROPHILS % (AUTO) 79.4 % (42-78); SODIUM 131.2 mmol/L (137-145); TOTAL CELLS COUNTED % (AUTO) 100 %; WHITE BLOOD COUNT 8.6 10^3/uL (4.0-10.5)
[2019-02-09] MEDS: HYDROCODONE/ACETAMINOPHEN 5-325 MG TABLET PO PRN (18:30)
--- NOTE | 2019-02-10 05:52 | PDOC PROGRESS REPORT ---
Subjective Progress Note for:: 02/07/19 Subjective:: Had surgery earlier today. She is resting comfortably. Reason For Visit: LEFT PATELLA FRACTURE Physical Exam Vital Signs: Temp Pulse Resp BP Pulse Ox 97.8 F 84 14 151/62 H 100 02/07/19 16:30 02/07/19 16:30 02/07/19 16:30 02/07/19 16:30 02/07/19 16:30 Intake & Output 02/06/19 02/07/19 02/08/19 06:59 06:59 06:59 Intake Total 930 1540 Output Total 925 160 Balance 5 1380 Weight 61.7 kg General appearance: PRESENT: no acute distress, cooperative, well-developed Head exam: PRESENT: atraumatic, normocephalic Ear exam: PRESENT: normal external ear exam Mouth exam: PRESENT: moist, tongue midline Respiratory exam: PRESENT: clear to auscultation gabriella Cardiovascular exam: PRESENT: diastolic murmur - 2/6, RRR, +S1, +S2 GI/Abdominal exam: PRESENT: normal bowel sounds, soft. ABSENT: distended, tenderness Extremities exam: PRESENT: other - Left leg and knee immobilizer. ABSENT: pedal edema Neurological exam: PRESENT: alert, awake, oriented to person, oriented to place, oriented to time, oriented to situation, CN II-XII grossly intact. ABSENT: motor sensory deficit Psychiatric exam: PRESENT: appropriate affect, normal mood. ABSENT: agitated, anxious Focused psych exam: ABSENT: delusional, restlessness Results Laboratory Results: 02/07/19 06:54 02/07/19 06:54 02/07/19 02/07/19 06:54 06:54 WBC 11.3 H RBC 3.64 L Hgb 11.3 L Hct 33.1 L MCV 91 MCH 31.0 MCHC 34.0 RDW 13.9 Plt Count 153 Seg Neutrophils % 76.4 Lymphocytes % 12.0 L Monocytes % 10.9 Eosinophils % 0.4 Basophils % 0.3 Absolute Neutrophils 8.6 H Absolute Lymphocytes 1.4 Absolute Monocytes 1.2 Absolute Eosinophils 0.0 Absolute Basophils 0.0 Sodium 136.5 L Potassium 3.4 L Chloride 99 Carbon Dioxide 28 Anion Gap 10 BUN 31 H Creatinine 0.94 Est GFR ( Amer) > 60 Est GFR (Non-Af Amer) 56 L Glucose 104 Calcium 9.4 02/06/19 02/06/19 15:03 15:03 Creatine Kinase 44 CK-MB (CK-2) 1.01 Troponin I < 0.012 Impressions: Chest X-Ray 02/06/19 13:57 IMPRESSION: 1. No acute pulmonary findings. 2. Cardiomegaly. No evidence for failure. Fluoroscopy 02/07/19 00:00 IMPRESSION: IMAGE(S) OBTAINED DURING PROCEDURE. Knee X-Ray 02/07/19 00:00 IMPRESSION: IMAGE(S) OBTAINED DURING PROCEDURE. Assessment and Plan - Diagnosis (1) Hypertension Qualifiers: Hypertension type: essential hypertension Qualified Code(s): I10 - Essential (primary) hypertension Is this a current diagnosis for this admission?: Yes Plan: Blood pressures are well controlled at home on her current regimen. Will resume medications postoperatively. (2) Patella fracture Qualifiers: Encounter type: subsequent encounter Fracture type: closed Fracture morphology: transverse Fracture alignment: displaced Laterality: left Is this a current diagnosis for this admission?: Yes Plan: Surgically repaired and currently in a leg immobilizer. Patient reports pain is reasonably controlled. (3) Tricuspid regurgitation Qualifiers: Cardiac valve disease etiology: etiology unspecified Qualified Code(s): I07.1 - Rheumatic tricuspid insufficiency Is this a current diagnosis for this admission?: Yes Plan: The patient was unaware of a murmur. Echocardiogram showed tricuspid regurgitation with moderate to severe pulmonary hypertension. At this point medical management is appropriate. Patient is currently asymptomatic. Continue same regimen. (4) Pulmonary hypertension Is this a current diagnosis for this admission?: Yes Plan: Echocardiogram also identified pulmonary hypertension. Reasonably compensated on current regimen. Continue the same. - Time Time Spent with patient: 15-24 minutes Medications reviewed and adjusted accordingly: Yes
--- NOTE | 2019-02-10 05:57 | PDOC PROGRESS REPORT ---
Subjective Progress Note for:: 02/08/19 Subjective:: Again patient is resting comfortably this morning. No complaints. Reason For Visit: LEFT PATELLA FRACTURE Physical Exam Vital Signs: Temp Pulse Resp BP Pulse Ox 98.8 F 65 14 148/74 H 99 02/10/19 00:32 02/10/19 00:32 02/09/19 20:33 02/10/19 00:32 02/10/19 00:32 Intake & Output 02/08/19 02/09/19 02/10/19 06:59 06:59 06:59 Intake Total 2590 2277 1540 Output Total 160 1300 800 Balance 2430 977 740 Weight 53.8 kg 56.2 kg 62.6 kg General appearance: PRESENT: no acute distress, cooperative, well-developed Head exam: PRESENT: atraumatic, normocephalic Ear exam: PRESENT: normal external ear exam. ABSENT: bleeding, drainage Mouth exam: PRESENT: moist, tongue midline Respiratory exam: PRESENT: clear to auscultation gabriella, symmetrical, unlabored. ABSENT: rales, rhonchi, tachypnea, wheezes Cardiovascular exam: PRESENT: diastolic murmur - 306, RRR, +S1, +S2 GI/Abdominal exam: PRESENT: normal bowel sounds, soft. ABSENT: distended, tenderness Extremities exam: PRESENT: other - Left leg immobilizer in place. ABSENT: calf tenderness, pedal edema Neurological exam: PRESENT: alert, awake, oriented to person, oriented to place, oriented to time, oriented to situation, CN II-XII grossly intact. ABSENT: mot or sensory deficit Psychiatric exam: PRESENT: appropriate affect, normal mood. ABSENT: agitated, anxious Focused psych exam: ABSENT: delusional, restlessness Results Laboratory Results: 02/09/19 09:00 02/09/19 09:00 02/09/19 02/09/19 09:00 09:00 WBC 8.6 RBC 3.32 L Hgb 10.1 L Hct 30.2 L MCV 91 MCH 30.5 MCHC 33.5 RDW 13.5 Plt Count 139 L Seg Neutrophils % 79.4 H Lymphocytes % 8.3 L Monocytes % 10.5 Eosinophils % 1.3 Basophils % 0.5 Absolute Neutrophils 6.9 Absolute Lymphocytes 0.7 Absolute Monocytes 0.9 Absolute Eosinophils 0.1 Absolute Basophils 0.0 Sodium 131.2 L Potassium 4.3 Chloride 96 L Carbon Dioxide 28 Anion Gap 7 BUN 20 Creatinine 0.78 Est GFR ( Amer) > 60 Est GFR (Non-Af Amer) > 60 Glucose 120 H Calcium 8.4 02/06/19 02/06/19 15:03 15:03 Creatine Kinase 44 CK-MB (CK-2) 1.01 Troponin I < 0.012 Impressions: Chest X-Ray 02/06/19 13:57 IMPRESSION: 1. No acute pulmonary findings. 2. Cardiomegaly. No evidence for failure. Fluoroscopy 02/07/19 00:00 IMPRESSION: IMAGE(S) OBTAINED DURING PROCEDURE. Knee X-Ray 02/07/19 00:00 IMPRESSION: IMAGE(S) OBTAINED DURING PROCEDURE. Assessment and Plan - Diagnosis (1) Hypertension Qualifiers: Hypertension type: essential hypertension Qualified Code(s): I10 - Valorie yeison (primary) hypertension Is this a current diagnosis for this admission?: Yes Plan: Previous medications resume. Good blood pressure control. (2) Patella fracture Qualifiers: Encounter type: subsequent encounter Fracture type: closed Fracture morphology: transverse Fracture alignment: displaced Laterality: left Is this a current diagnosis for this admission?: Yes Plan: Surgically repaired. Physical therapy has been ordered. (3) Tricuspid regurgitation Qualifiers: Cardiac valve disease etiology: etiology unspecified Qualified Code(s): I07.1 - Rheumatic tricuspid insufficiency Is this a current diagnosis for this admission?: Yes Plan: Stable on current regimen. No change to treatment plan. (4) Pulmonary hypertension Is this a current diagnosis for this admission?: Yes Plan: Stable on current regimen. No change to treatment plan. (5) Constipation Qualifiers: Constipation type: unspecified constipation type Qualified Code(s): K59.00 - Constipation, unspecified Is this a current diagnosis for this admission?: Yes Plan: No bowel movement since admission. This is likely due to a combination of pain medication and immobility. Patient is on Colace 100 mg twice daily and a bisacodyl suppository is available as needed. - Time Time Spent with patient: 15-24 minutes Medications reviewed and adjusted accordingly: Yes
[2019-02-10] MEDS: METOPROLOL SUCCINATE 50 MG TAB.SR.24H PO SCH ×2 (09:20→20:59)
[2019-02-10] MEDS: DOCUSATE SODIUM 100 MG CAPSULE PO SCH ×2 (09:20→17:21)
[2019-02-10] MEDS: ASPIRIN 81 MG TABLET, ENT COATED PO SCH (09:20)
[2019-02-10] MEDS: HYDROCHLOROTHIAZIDE 25 MG TABLET PO SCH (09:21)
[2019-02-10] MEDS: LOSARTAN POTASSIUM 50 MG TABLET PO SCH (09:21)
[2019-02-10] MEDS: CALCIUM CARBONATE 250 MG/VITAMIN D3 125 UNIT TABLET PO SCH (09:23)
[2019-02-10] MEDS: BENZOCAINE/MENTHOL SORE THROAT LOZENGE BUCCAL PRN (10:42)
[2019-02-10] MEDS: HYDROCODONE/ACETAMINOPHEN 5-325 MG TABLET PO PRN (19:32)
--- NOTE | 2019-02-10 23:06 | Progress Note ---
Provider Note Provider Note: The patient was not seen by the hospitalist service on February 09 has orthopedic surgery note indicated discharge to [facility] facility.
--- NOTE | 2019-02-10 23:21 | PDOC TRANSFER SUMMARY ---
General - Admit/Disc Date/PCP Admission Date/Primary Care Provider: 02/06/19 14:34 EMILY FLORES MD Discharge Date: 02/10/19 - Anticipated discharge the morning of February 11 - Discharge Diagnosis (1) Hypertension Is this a current diagnosis for this admission?: Yes Summary: The patient's blood pressure is well controlled on her current regimen. Continue same. (2) Patella fracture Is this a current diagnosis for this admission?: Yes Summary: The patient underwent surgical repair (ORIF left patella) and has done quite well. A bed is available tomorrow and arrangements will be made for discharge. I am dictating this to expedite an early transfer as it will be a weekend admission for the long term facility. The patient will follow up with orthopedic surgery in 7 to 10 days. At the time of discharge the patient will be transferring to long term facility. She should receive physical therapy with weightbearing as tolerated. She needs to keep the knee immobilizer in place. (3) Tricuspid regurgitation Is this a current diagnosis for this admission?: Yes Summary: The patient is stable on her current regimen. No changes at this time. (4) Pulmonary hypertension Is this a current diagnosis for this admission?: Yes Summary: The patient is stable on her current regimen. No changes at this time. (5) Constipation Is this a current diagnosis for this admission?: Yes Summary: The patient has been struggling somewhat with constipation. Stool softeners and as needed laxatives are available. - Additional Information Resuscitation Status: Full Code Home Medications: Ca Citrate/Mgox/Vit D3/B6/Min [Citracal Plus Tablet] 2 tab PO DAILY 02/06/19 Cephalexin [Cephalexin 500 MG Tablet] 500 mg PO TID 02/06/19 Losartan/Hydrochlorothiazide [Losartan-Hctz 100-25 mg Tab] 1 each PO DAILY 02/06/19 Metoprolol Succinate 100 mg PO BID 02/06/19 Raloxifene HCl [Evista 60 mg Tablet] 60 mg PO DAILY 02/06/19 History of Present Illness Admission Date/PCP: 02/06/19 14:34 EMILY FLORES MD Patient complains of: Left knee pain History of Present Illness: BILL SAUNDERS is a 88 year old female who had a mechanical fall and landed on her left knee. X-rays revealed a patella fracture. It is a comminuted fracture and the patient was admitted by orthopedic surgery. The hospitalist were asked to consult for hypertension and cardiac clearance. Hospital Course Hospital Course: The patient had an unremarkable hospital course. She had the left patella repaired. She has been having very little pain. She is working with physical therapy and is weightbearing as tolerated. She needs to wear the knee immobilizer until follow-up with orthopedic surgery. Her blood pressure was well controlled during this hospitalization. In addition the murmur was discovered and echocardiogram was performed. Tricuspid regurgitation with pulmonary hypertension. She appears to be well compensated on her current regimen. Physical Exam Vital Signs: Temp Pulse Resp BP Pulse Ox 98.4 F 68 18 133/62 H 97 02/10/19 19:17 02/10/19 19:17 02/10/19 19:17 02/10/19 19:17 02/10/19 19:17 Intake & Output 02/09/19 02/10/19 02/11/19 06:59 06:59 06:59 Intake Total 2277 1690 948 Output Total 1300 800 950 Balance 977 890 -2 Weight 56.2 kg 62.6 kg General appearance: PRESENT: no acute distress, cooperative, well-developed Head exam: PRESENT: atraumatic, normocephalic Respiratory exam: PRESENT: clear to auscultation gabriella, symmetrical, unlabored. ABSENT: accessory muscle use, rales, rhonchi, tachypnea, wheezes Cardiovascular exam: PRESENT: RRR, +S1, +S2, systolic murmur - 3/6 GI/Abdominal exam: PRESENT: normal bowel sounds, soft. ABSENT: distended, tenderness Rectal exam: PRESENT: deferred Extremities exam: PRESENT: other - Left knee immobilizer in place. ABSENT: pedal edema Neurological exam: PRESENT: alert, awake, oriented to person, oriented to place, oriented to time, oriented to situation, CN II-XII grossly intact. ABSENT: motor sensory deficit Psychiatric exam: PRESENT: appropriate affect, normal mood. ABSENT: agitated, anxious Focused psych exam: ABSENT: delusional, restlessness Results Laboratory Results: 02/09/19 09:00 02/09/19 09:00 02/06/19 02/06/19 15:03 15:03 Creatine Kinase 44 CK-MB (CK-2) 1.01 Troponin I < 0.012 Impressions: Chest X-Ray 02/06/19 13:57 IMPRESSION: 1. No acute pulmonary findings. 2. Cardiomegaly. No evidence for failure. Fluoroscopy 02/07/19 00:00 IMPRESSION: IMAGE(S) OBTAINED DURING PROCEDURE. Knee X-Ray 02/07/19 00:00 IMPRESSION: IMAGE(S) OBTAINED DURING PROCEDURE. Transfer Plan - Disposition Transfer Plan: The patient has been accepted at [facility]. Transportation is being arranged for tomorrow morning. Prescriptions for class II medications will be provided at the time of discharge. - Time Spent with Patient Time spent with patient: Greater than 30 Minutes Qualifiers - * PATIENT BEING DISCHARGED WITH ANY OF THE FOLLOWING DIAGNOSIS: No Acute Heart Failure Is this a Heart Failure Patient?: No Plan Discharge Plan: Anticipated discharge is February 11. This summary was dictated on February 10 in preparation for morning transfer. Time Spent: Greater than 30 Minutes
[2019-02-11] MEDS: BENZOCAINE/MENTHOL SORE THROAT LOZENGE BUCCAL PRN (02:16)
[2019-02-11] MEDS: DOCUSATE SODIUM 100 MG CAPSULE PO SCH (09:01)
[2019-02-11] MEDS: ASPIRIN 81 MG TABLET, ENT COATED PO SCH (09:05)
[2019-02-11] MEDS: METOPROLOL SUCCINATE 50 MG TAB.SR.24H PO SCH (09:05)
[2019-02-11] MEDS: HYDROCHLOROTHIAZIDE 25 MG TABLET PO SCH (09:05)
[2019-02-11] MEDS: LOSARTAN POTASSIUM 50 MG TABLET PO SCH (09:05)
[2019-02-11] MEDS: CALCIUM CARBONATE 250 MG/VITAMIN D3 125 UNIT TABLET PO SCH (09:06)
[2019-02-11 14:07] VITALS: BP 126/54
== END 2019-02-11 17:05 | DRG 517 ==
LOC: ER 13:17 → EH 14:34 → 4S 17:04
PROVIDERS: ADMIT Orthopaedic Surgery; ATTEND Orthopaedic Surgery
PROC: 0QSF04Z Reposition Left Patella with Internal Fixation Device, Open Approach (ICD-10-PCS; principal; 2019-02-07 09:00)
DX: S82.032A Displaced transverse fracture of left patella, initial encounter for closed fracture (principal); W01.0XXA Fall on same level from slipping, tripping and stumbling without subsequent striking against object, initial encounter; I10 Essential (primary) hypertension; I07.1 Rheumatic tricuspid insufficiency; I27.20 Pulmonary hypertension, unspecified; K59.00 Constipation, unspecified; Z60.2 Problems related to living alone; Z66 Do not resuscitate; Z79.899 Other long term (current) drug therapy; Z82.49 Family history of ischemic heart disease and other diseases of the circulatory system; Z88.6 Allergy status to analgesic agent; Z88.0 Allergy status to penicillin; Z88.3 Allergy status to other anti-infective agents
CPT/HCPCS: 01392; 36415; 51702; 71045; 80048; 80053; 81001; 82550; 82553; 84484; 85025; 93005; 93010; 93306; 99285; C1713; J0360; J2250; J2270; J2370; J2405; J2704; J3010; J3490; J7120; L1830